=== PATIENT | female | born 1950 | race Caucasian/White ===

== ENCOUNTER 2018-04-05 11:46 | Emergency (ER) | payer MEDICARE ==
[2018-04-05] MEDS ORDERED: Ketorolac 30 MG/ML SDV IM ONE (12:30)
--- NOTE | 2018-04-05 12:35 | EDM.PDOC ---
ED HPI GENERAL MEDICAL PROBLEM - General Chief Complaint: Lower Extremity Injury/Pain Stated Complaint: LT KNEE SWOLLEN Time Seen by Provider: 04/05/18 11:52 Source of Information: Reports: Patient History Limitations: Reports: No Limitations - History of Present Illness INITIAL COMMENTS - FREE TEXT/NARRATIVE: History of present illness: []Patient has pain over her left lower back radiating down her buttock cheeks into her left knee and lateral leg. She denies any trauma, numbness, tingling or urinary or fecal incontinence. Review of systems: As per history of present illness and below otherwise all systems reviewed and negative. Past medical history: As per history of present illness and as reviewed below otherwise noncontributory. Surgical history: As per history of present illness and as reviewed below otherwise noncontributory. Social history: No reported history of drug or alcohol abuse. Family history: As per history of present illness and as reviewed below otherwise noncontributory. Physical exam: General: Well developed, well nourished in NAD HEENT: Atraumatic, normocephalic, pupils reactive, negative for conjunctival pallor or scleral icterus, mucous membranes moist, throat clear, neck supple, nontender, trachea midline. Lungs: Clear to auscultation, breath sounds equal bilaterally, chest nontender. Heart: S1S2, regular, negative for clicks, rubs, or JVD. Abdomen: NABS, Soft, nondistended, nontender. Negative for masses or hepatosplenomegaly. Negative for costovertebral tenderness. Pelvis: Stable nontender. Genitourinary: Deferred. Rectal: Deferred. Extremities: Atraumatic, negative for cords or calf pain. Neurovascular unremarkable. Neuro: Awake, alert, oriented. Cranial nerves II through XII unremarkable. Cerebellum unremarkable. Motor and sensory unremarkable throughout. Exam nonfocal. Reflexes intact, straight leg negative raises his toes Skin:warm and dry Diagnostics: None Therapeutics: Toradol ED Course: Unremarkable Impression: Left-sided sciatica Prescriptions: Medrol Dosepak, diclofenac Plan: Follow-up with primary care return if symptoms worsen or change Definitive disposition and diagnosis as appropriate pending reevaluation and review of above. Left Leg Pain Score (Numeric/FACES): 8 - Related Data Allergies Allergy/AdvReac Type Severity Reaction Status Date / Time Phenergan / Codeine Allergy Difficulty Uncoded 04/05/18 12:06 Breathing Home Meds: Home Meds Vit C/Ascorbate Ca/Ascorb Sod [Vitamin C] 1 tab PO DAILY 11/20/13 [History] Calcium Carbonate [Calcium] 500 mg PO DAILY 11/21/13 [History] Esomeprazole Magnesium [Nexium] 1 tab PO DAILY 02/25/15 [History] Diclofenac Sodium [Voltaren] 75 mg PO BIDMEALS PRN #20 tab.cr 04/05/18 [Rx] methylPREDNISolone [Medrol] 4 mg PO ASDIRECTED #1 dosepk 04/05/18 [Rx] Past Medical History Other HEENT History: Ringing in ear on LEFT, Hear best on Right Gastrointestinal History: Reports: GERD Other Gastrointestinal History: Recent episode Left sided pain abnormal finding on CT scan abdomen and colon, HX: Gastric Ulcers Other Musculoskeletal History: Little arthritis to hands Other Neuro History: Brief episode of Vertigo seen in ER (Recent while) Other Dermatologic History: Occas Rosacea - Past Surgical History GI Surgical History: Reports: Cholecystectomy Other GI Surgeries/Procedures: Open Cholecystectomy Social & Family History - Family History Family Medical History: Noncontributory - Tobacco Use Smoking Status *Q: Never Smoker - Recreational Drug Use Recreational Drug Use: No Review of Systems - Review of Systems Review Of Systems: ROS reveals no pertinent complaints other than HPI. ED EXAM, GENERAL - Physical Exam Exam: See Below (See history of present illness) Course - Vital Signs Last Recorded V/S: Last Vital Signs Temp 97.6 F 04/05/18 12:04 Pulse 72 04/05/18 12:04 Resp 18 04/05/18 12:04 BP 130/69 04/05/18 12:04 Pulse Ox 95 04/05/18 12:04 - Orders/Labs/Meds Meds: Medications Discontinued Medications Generic Name Dose Route Start Last Admin Trade Name Freq PRN Reason Stop Dose Admin Ketorolac Tromethamine 15 mg 04/05/18 12:30 04/05/18 12:39 Toradol IM 04/05/18 12:31 15 mg ONETIME ONE Administration Departure - Departure Time of Disposition: 13:19 Disposition: Home, Self-Care 01 Condition: Good Clinical Impression: Left sided sciatica - Discharge Information *PRESCRIPTION DRUG MONITORING PROGRAM REVIEWED*: No *COPY OF PRESCRIPTION DRUG MONITORING REPORT IN PATIENT AGUILAR: No Prescriptions: Diclofenac Sodium [Voltaren] 75 mg PO BIDMEALS PRN #20 tab.cr PRN Reason: Pain methylPREDNISolone [Medrol] 4 mg PO ASDIRECTED #1 dosepk Referrals: Mino Light MD [Primary Care Provider] - Forms: ED Department Discharge Additional Instructions: The following information is given to patients seen in the emergency department who are being discharged to home. This information is to outline your options for follow-up care. We provide all patients seen in our emergency department with a follow-up referral. The need for follow-up, as well as the timing and circumstances, are variable depending upon the specifics of your emergency department visit. If you don't have a primary care physician on staff, we will provide you with a referral. We always advise you to contact your personal physician following an emergency department visit to inform them of the circumstance of the visit and for follow-up with them and/or the need for any referrals to a consulting specialist. The emergency department will also refer you to a specialist when appropriate. This referral assures that you have the opportunity for follow-up care with a specialist. All of these measure are taken in an effort to provide you with optimal care, which includes your follow-up. Under all circumstances we always encourage you to contact your private physician who remains a resource for coordinating your care. When calling for follow-up care, please make the office aware that this follow-up is from your recent emergency room visit. If for any reason you are refused follow-up, please contact the [facility] Emergency Department at and asked to speak to the emergency department charge nurse. [facility] Primary Care [address] [place] [id number]
[2018-04-05 13:42] VITALS: BP 122/66
== END 2018-04-05 13:42 | disposition home or self-care (01) ==
LOC: MW.ED 11:46
DX: M54.42 Lumbago with sciatica, left side (principal); Z79.899 Other long term (current) drug therapy; Z90.49 Acquired absence of other specified parts of digestive tract; Z88.5 Allergy status to narcotic agent
CPT/HCPCS: 96372; 99283; J1885

== ENCOUNTER 2019-11-05 11:02 | Emergency (ER) | payer MEDICARE ==
[2019-11-05] MEDS ORDERED: Sodium Chloride 0.9% 2.5 ML Syringe FLUSH PRN (11:03)
[2019-11-05] MEDS ORDERED: Sodium Chloride 0.9% 10 ML Syringe FLUSH PRN (11:03)
[2019-11-05] MEDS ORDERED: Acetaminophen 500 MG Tab PO ONE (11:20)
--- NOTE | 2019-11-05 11:22 | EDM.PDOC ---
ED HPI GENERAL MEDICAL PROBLEM - General Chief Complaint: Chest Pain Stated Complaint: CHEST PRESSURE INTO BACK Time Seen by Provider: 11/05/19 11:03 Source of Information: Reports: Patient, Old Records History Limitations: Reports: No Limitations - History of Present Illness INITIAL COMMENTS - FREE TEXT/NARRATIVE: 69-year-old female with a past medical history of GERD presenting with chest pain. 2-week history of substernal chest pain radiating to the back. Nothing makes it better or worse. No history of similar pain like this. Onset gradual, pain is intermittent and at times she is totally pain-free. Described as "pressure". Rated as 2 out of 10. No self treatment prior to arrival. Denies fever, chills, cough, hemoptysis, recent vomiting, radiation to the neck, shoulder, or jaw, history of coronary artery disease. No prior VTE, denies leg swelling or pain, hemoptysis, recent surgery or immobilization or long travel, history of malignancy, or history of hormone use. ROS: A 10-point review of systems was negative, except as noted in the HPI (or in the ROS section of this note). Past medical history: Reviewed, no additional pertinent history. Surgical history: Reviewed in system, no additional pertinent history. Social history: Reviewed in system, no additional pertinent history. Family history: Reviewed in system, no additional pertinent history. PHYSICAL EXAM Vital signs reviewed. Nursing notes reviewed. Constitutional: Awake, alert, non-distressed. Head: Normocephalic, atraumatic. Eyes: EOMI, conjunctiva normal, no discharge, no scleral icterus. Ears, Nose, Throat: External ears and nose normal, moist oral mucosa. Cardiovascular: 2+ radial pulses bilaterally, capillary refill less than 2 seconds. RRR no MRG. No lower extremity edema. Pulmonary: normal work of breathing, no accessory muscle use. CTA BL. Abdomen/GI: Soft, nontender, nondistended, no guarding or rigidity, no masses. Musculoskeletal: No deformities. Integumentary: Appropriate color for ethnicity, warm, dry, no pallor or jaundice, no rash. Neurologic: Alert, answering questions appropriately, normal speech, no facial droop, moving all extremities well. Psychiatric: Appropriate mood and affect, normal thought process. chest pain Pain Score (Numeric/FACES): 1 - Related Data Allergies Allergy/AdvReac Type Severity Reaction Status Date / Time Phenergan / Codeine Allergy Difficulty Uncoded 11/05/19 11:05 Breathing Home Meds: Home Meds Vit C/Ascorbate Calcium,Sodium [Vitamin C] 1 tab PO DAILY 11/20/13 [History] Calcium Carbonate [Calcium] 500 mg PO DAILY 11/21/13 [History] Esomeprazole Magnesium [Nexium] 1 tab PO DAILY 02/25/15 [History] Past Medical History HEENT History: Reports: Other (See Below) Other HEENT History: Ringing in ear on LEFT, Hear best on Right Cardiovascular History: Reports: None Respiratory History: Reports: None Gastrointestinal History: Reports: GERD Other Gastrointestinal History: Recent episode Left sided pain abnormal finding on CT scan abdomen and colon, HX: Gastric Ulcers Genitourinary History: Reports: None GEMOLOGIST History: Reports: None Musculoskeletal History: Reports: Arthritis Other Musculoskeletal History: Little arthritis to hands Neurological History: Reports: Vertigo, Other (See Below) Other Neuro History: Brief episode of Vertigo seen in ER (Recent while) Psychiatric History: Reports: None Endocrine/Metabolic History: Reports: None Hematologic History: Reports: None Immunologic History: Reports: None Oncologic (Cancer) History: Reports: None Dermatologic History: Reports: Other (See Below) Other Dermatologic History: Occas Rosacea - Infectious Disease History Infectious Disease History: Reports: Chicken Pox, Measles, Mumps - Past Surgical History Head Surgeries/Procedures: Reports: None HEENT Surgical History: Reports: None Cardiovascular Surgical History: Reports: None Respiratory Surgical History: Reports: None GI Surgical History: Reports: Cholecystectomy Other GI Surgeries/Procedures: Open Cholecystectomy Female Surgical History: Reports: None Endocrine Surgical History: Reports: None Neurological Surgical History: Reports: None Musculoskeletal Surgical History: Reports: None Oncologic Surgical History: Reports: None Dermatological Surgical History: Reports: None Social & Family History - Family History Family Medical History: Noncontributory - Tobacco Use Smoking Status *Q: Never Smoker Second Hand Smoke Exposure: No - Caffeine Use Caffeine Use: Reports: None - Alcohol Use Alcohol Use History: No - Recreational Drug Use Recreational Drug Use: No ED ROS GENERAL - Review of Systems Review Of Systems: See Below ED EXAM, GENERAL - Physical Exam Exam: See Below EKG INTERPRETATION EKG Interpretation Comments: 12-Lead ECG Interpretation Acquired: 11:06 AM Rhythm: Sinus rhythm Rate: 61 bpm [place]: Normal Intervals: Normal Ectopy: None Ischemic Changes: None apparent RV Strain: No obvious RV strain pattern. ST Segments/T-Waves: No notable changes Interpretation: Unremarkable Course - Vital Signs Text/Narrative:: Patient hemodynamically stable, afebrile, well-appearing, looks nontoxic. Differential diagnosis includes but is not limited to: ACS, pulmonary embolism, aortic dissection, acute systolic heart failure, pneumonia, pneumothorax, pericardial effusion, pleural effusion, pericarditis, endocarditis, esophageal rupture, GERD, drug-induced chest pain, chest wall pain, and many others. Labs reassuring including CBC, CMP. Negative troponin. Chest x-ray shows no pneumothorax or infiltrate, no cardiomegaly. Mediastinum is not widened. Given acetaminophen with some improvement of her chest pain. I considered a multitude of differential diagnoses for the patient's chest pain, including: Acute coronary syndrome: the ECGs do not demonstrate acute ischemia and troponin testing is negative. They have a HEART score of 3. Negative troponin with two weeks of intermittent chest pain. Pulmonary embolism: The patient the patient is low risk by Wells PE criteria, and I have a low clinical suspicion. There is no resting tachycardia, pleuritic pain component, and no clinical sign of DVT on physical examination. Thoracic aortic dissection: equal radial pulses, no radiation of pain to the back, no history of connective tissue disease. The mediastinum is not widened on x-ray. Mild, intermittent chest pain for weeks is not consistent with this disease. Acute decompensated heart failure/pulmonary edema: no significant respiratory distress (hypoxia, tachypnea), no significant lower extremity edema, no evidence of edema on chest x-rays, no JVD. Pneumothorax/pleural effusion: no evidence of such on chest x-ray, no fever or sputum production, no tachypnea or hypoxia. Pericardial effusion: no friction rub, no JVD. Pravin/pericarditis: no fever, no friction rub, negative troponin testing, non- diagnostic ECG. Critical aortic stenosis: no history of aortic stenosis, no significant murmur. Endocarditis: no fever, no splinter hemorrhages noted, no murmur, no history of IV drug use, non-toxic appearing. Esophageal rupture: no fever, no history of recurrent emesis, no subcutaneous emphysema to the neck or chest, non-toxic appearing. Zoster/shingles: no evidence of rash to chest wall. GERD, musculoskeletal chest pain, pleurisy, non-specific chest pain, et cetera. The patient presented with chest pain of uncertain etiology. Based on their history, lab analysis, and ECG, I see no evidence at this time for a malignant etiology for the patient's chest pain. Plan: Patient is stable to discharge home with outpatient primary care clinic follow-up. Strict emergency department return precautions were provided, patient indicated understanding. All questions were answered prior to departure. Discharged in good condition. HEART Score for Major Cardiac Events RESULT SUMMARY: 2 points Low Score (0-3 points) Risk of MACE of 0.9-1.7%. INPUTS: History > 0 = Slightly suspicious EKG > 0 = Normal Age > 2 = ?65 Risk factors > 0 = No known risk factors Initial troponin > 0 = ?normal limit Wells' Criteria for Pulmonary Embolism RESULT SUMMARY: 0.0 points Low risk group: 1.3% chance of PE in an ED population. Another study assigned scores ? 4 as PE Unlikely and had a 3% incidence of PE. INPUTS: Clinical signs and symptoms of DVT > 0 = No PE is #1 diagnosis OR equally likely > 0 = No Heart rate > 100 > 0 = No Immobilization at least 3 days OR surgery in the previous 4 weeks > 0 = No Previous, objectively diagnosed PE or DVT > 0 = No Hemoptysis > 0 = No Malignancy w/ treatment within 6 months or palliative > 0 = No Last Recorded V/S: Last Vital Signs Temp 36.2 C 11/05/19 11:06 Pulse 62 11/05/19 11:06 Resp 17 11/05/19 11:06 BP 126/67 11/05/19 11:06 Pulse Ox 98 11/05/19 11:06 - Orders/Labs/Meds Orders: Active Orders 24 hr Category Date Time Status Cardiac Monitoring [RC] . DIRECTED Care 11/05/19 11:03 Active EKG Documentation Completion [RC] STAT Care 11/05/19 11:03 Active Pulse Oximetry [RC] ASDIRECTED Care 11/05/19 11:03 Active Sodium Chloride 0.9% [Saline Flush] Med 11/05/19 11:03 Active 10 ml FLUSH ASDIRECTED PRN Sodium Chloride 0.9% [Saline Flush] Med 11/05/19 11:03 Active 2.5 ml FLUSH ASDIRECTED PRN Saline Lock Insert [OM.PC] Stat Oth 11/05/19 11:04 Ordered Medication Orders Sodium Chloride (Saline Flush) 10 ml FLUSH ASDIRECTED PRN PRN Reason: Keep Vein Open Last Admin: 11/05/19 11:30 Dose: 10 ml Documented by: HEATHER Sodium Chloride (Saline Flush) 2.5 ml FLUSH ASDIRECTED PRN PRN Reason: Keep Vein Open Last Admin: 11/05/19 11:30 Dose: 2.5 ml Documented by: HEATHER Labs: Laboratory Tests 11/05/19 11/05/19 Range/Units 11:07 11:07 WBC 4.93 (4.0-11.0) K/uL RBC 4.24 L (4.30-5.90) M/uL Hgb 13.5 (12.0-16.0) g/dL Hct 41.8 (36.0-46.0) % MCV 98.6 H (80.0-98.0) fL MCH 31.8 (27.0-32.0) pg MCHC 32.3 (31.0-37.0) g/dL RDW Std Deviation 45.9 (28.0-62.0) fl RDW Coeff of William 13 (11.0-15.0) % Plt Count 238 (150-400) K/uL MPV 8.60 (7.40-12.00) fL Neut % (Auto) 52.1 (48.0-80.0) % Lymph % (Auto) 33.3 (16.0-40.0) % Scott % (Auto) 11.8 (0.0-15.0) % Eos % (Auto) 2.0 (0.0-7.0) % Baso % (Auto) 0.8 (0.0-1.5) % Neut # (Auto) 2.6 (1.4-5.7) K/uL Lymph # (Auto) 1.6 (0.6-2.4) K/uL Scott # (Auto) 0.6 (0.0-0.8) K/uL Eos # (Auto) 0.1 (0.0-0.7) K/uL Baso # (Auto) 0.0 (0.0-0.1) K/uL Sodium 139 (136-145) mmol/L Potassium 4.1 (3.5-5.1) mmol/L Chloride 103 (98-107) mmol/L Carbon Dioxide 31.4 (21.0-32.0) mmol/L BUN 22 H (7.0-18.0) mg/dL Creatinine 1.0 (0.6-1.0) mg/dL Est Cr Clr Drug Dosing 41.40 mL/min Estimated GFR (MDRD) 54.8 ml/min Glucose 74 (74-106) mg/dL Calcium 8.7 (8.5-10.1) mg/dL Total Bilirubin 0.3 (0.2-1.0) mg/dL AST 20 (15-37) IU/L ALT 24 (14-63) IU/L Alkaline Phosphatase 88 (46-116) U/L Troponin I < 0.050 (0.000-0.056) ng/mL Total Protein 7.5 (6.4-8.2) g/dL Albumin 3.7 (3.4-5.0) g/dL Globulin 3.8 (2.6-4.0) g/dL Albumin/Globulin Ratio 1.0 (0.9-1.6) Meds: Medications Generic Name Dose Route Start Last Admin Trade Name Brettq PRN Reason Stop Dose Admin Sodium Chloride 10 ml 11/05/19 11:03 11/05/19 11:30 Saline Flush FLUSH 10 ml ASDIRECTED PRN Administration Keep Vein Open Sodium Chloride 2.5 ml 11/05/19 11:03 11/05/19 11:30 Saline Flush FLUSH 2.5 ml ASDIRECTED PRN Administration Keep Vein Open Discontinued Medications Generic Name Dose Route Start Last Admin Trade Name Freq PRN Reason Stop Dose Admin Acetaminophen 1,000 mg 11/05/19 11:20 11/05/19 11:31 Tylenol Extra Strength PO 11/05/19 11:21 1,000 mg ONETIME ONE Administration Departure - Departure Time of Disposition: 12:09 Disposition: Home, Self-Care 01 Condition: Good Clinical Impression: Atypical chest pain Instructions: Nonspecific Chest Pain, Adult Referrals: Mino Light MD [Primary Care Provider] - 3 Days (For reevaluation of chest pa in.) Forms: ED Department Discharge Additional Instructions: You were seen in the emergency department for chest pain. At this point, your blood work, EKG, and x-rays look reassuring. There is no evidence of a heart attack or any other emergency condition at this point. I feel comfortable letting you go home to follow-up with your primary doctor the next 2 to 3 days. You can take [id number] acetaminophen or aspirin as needed for pain. If your pain gets worse or if you have trouble breathing or any other new or concerning symptoms, come back to the ER right away. Please return the emergency department immediately if your symptoms worsen or if you feel worse. Thank you for choosing the [facility] emergency department in [place] for your medical needs today. It was a pleasure caring for you. The following information is given to patients seen in the emergency department who are being discharged. This information is to outline your options for follow-up care. We provide all patients seen in our emergency department with a follow-up referral. The need for follow-up, as well as the timing and circumstances, are variable depending upon the specifics of your emergency department visit. If you don't have a primary care physician on staff, we will provide you with a referral. We always advise you to contact your personal physician following an emergency department visit to inform them of the circumstance of the visit and for follow-up with them and/or the need for any referrals to a consulting specialist. The emergency department will also refer you to a specialist when appropriate. This referral assures that you have the opportunity for follow-up care with a specialist. All of these measure are taken in an effort to provide you with optimal care, which includes your follow-up. Under all circumstances we always encourage you to contact your private physician who remains a resource for coordinating your care. When calling for follow-up care, please make the office aware that this follow-up is from your recent emergency room visit. If for any reason you are refused follow-up, please contact the [facility] Emergency Department at and asked to speak to the emergency department charge nurse. If you do not have a primary care physician that is caring for you, you can contact these clinics below to set up an appointment to establish care: [facility] - Primary Care [address] [place] [address] [facility] [place] [address] [place] [address] Sepsis Event Note (ED) - Evaluation Sepsis Screening Result: No Definite Risk - Focused Exam Vital Signs: Vital Signs Temp Pulse Resp BP Pulse Ox 11/05/19 11:06 36.2 C 62 17 126/67 98 - My Orders Last 24 Hours: My Active Orders 11/05/19 11:03 Cardiac Monitoring [RC] . DIRECTED EKG Documentation Completion [RC] STAT Pulse Oximetry [RC] ASDIRECTED Sodium Chloride 0.9% [Saline Flush] 10 ml FLUSH ASDIRECTED PRN Sodium Chloride 0.9% [Saline Flush] 2.5 ml FLUSH ASDIRECTED PRN 11/05/19 11:04 Saline Lock Insert [OM.PC] Stat - Assessment/Plan Last 24 Hours: My Active Orders 11/05/19 11:03 Cardiac Monitoring [RC] . DIRECTED EKG Documentation Completion [RC] STAT Pulse Oximetry [RC] ASDIRECTED Sodium Chloride 0.9% [Saline Flush] 10 ml FLUSH ASDIRECTED PRN Sodium Chloride 0.9% [Saline Flush] 2.5 ml FLUSH ASDIRECTED PRN 11/05/19 11:04 Saline Lock Insert [OM.PC] Stat
[2019-11-05 11:53] LABS: BLOOD UREA NITROGEN,BUN 22 mg/dL (7.0-18.0); CARBON DIOXIDE,CO2 31.4 mmol/L (21.0-32.0); CHLORIDE,CL 103 mmol/L (98-107); GLUCOSE RANDOM 74 mg/dL (74-106); POTASSIUM,K 4.1 mmol/L (3.5-5.1); SODIUM,NA 139 mmol/L (136-145)
--- NOTE | 2019-11-05 12:06 | CR ---
Chest: 2 views of the chest were obtained. Comparison: No prior chest imaging. Heart size is normal. Tortuous thoracic aorta is seen. Lungs are clear with no acute parenchymal change. Scattered disc space narrowing and endplate spurring are noted within the spine. Mild kyphosis is noted as well as mild scoliosis. Impression: 1. Findings as noted above. 2. Nothing acute is seen. Diagnostic code #2 This report was dictated in MDT
[2019-11-05 18:42] VITALS: BP 139/58; PULSE 57
== END 2019-11-05 12:19 | disposition home or self-care (01) ==
LOC: MW.ED 11:02
DX: R07.89 Other chest pain (principal); R07.2 Precordial pain; K21.9 Gastro-esophageal reflux disease without esophagitis; Z88.8 Allergy status to other drugs, medicaments and biological substances; Z79.899 Other long term (current) drug therapy
CPT/HCPCS: 71046; 80053; 84484; 85025; 93005; 99285; A9270

== ENCOUNTER 2024-09-10 09:51 | Emergency (ER) | payer MEDICARE ==
[2024-09-10 10:05] VITALS: BP 132/69; PULSE 68
== END 2024-09-10 12:21 | disposition home or self-care (01) ==
LOC: MW.ED 09:51
DX: R07.81 Pleurodynia (principal); S09.90XA Unspecified injury of head, initial encounter; Z75.8 Other problems related to medical facilities and other health care; Z90.49 Acquired absence of other specified parts of digestive tract; Z88.5 Allergy status to narcotic agent; W18.40XA Slipping, tripping and stumbling without falling, unspecified, initial encounter
CPT/HCPCS: 70450; 70450-26; 71250; 71250-26; 72125; 72125-26; 99282; 99283